=== PATIENT | female | born 1960 | race Caucasian/White ===

== ENCOUNTER 2016-10-31 17:05 | Emergency (ER) | payer BC, OTHER ==
[~2016-10-31] VITALS: Ht 160 cm; Wt 78.8 kg
[2016-10-31 17:08] VITALS: Ht 160 cm; Wt 78.8 kg
[2016-10-31] MEDS ORDERED: ONDANSETRON 4 MG INJ IV STA ×2 (17:19→18:57)
[2016-10-31] MEDS ORDERED: KETOROLAC 30 MG INJ IV STA (17:19)
[2016-10-31] MEDS ORDERED: FAMOTIDINE 20 MG INJ IV STA (17:19)
[2016-10-31] MEDS ORDERED: SOD CHLORIDE 0.9% 1,000 ML IV STA (17:19)
[2016-10-31 17:35] LABS: ADD SCAN DIFF NO; BASOPHILS % 0.2 % (0.0-2.0); EOSINOPHILS % 0.1 % (0.0-7.0); HEMATOCRIT 41.3 % (37.0-47.0); HEMOGLOBIN 13.5 g/dl (12.0-16.0); LYMPHOCYTES # 1.7 10^3/ul (0.8-2.9); LYMPHOCYTES % 12.4 % (15.0-51.0); MEAN CORPUSCULAR HEMOGLOBIN 30.3 pg (29.0-33.0); MEAN CORPUSCULAR HGB CONC 32.7 g/dl (32.0-37.0); MEAN CORPUSCULAR VOLUME 92.6 fl (82.0-101.0); MEAN PLATELET VOLUME 8.7 fl (7.4-10.4); MONOCYTE # 0.4 10^3/ul (0.3-0.9); MONOCYTES % 2.7 % (0.0-11.0); NEUTROPHIL # 11.4 10^3/ul (1.6-7.5); NEUTROPHILS % 84.2 % (39.0-77.0); PLATELET COUNT 380 10^3/UL (140-415); RED BLOOD COUNT 4.46 10^6/ul (4.20-5.40); RED CELL DISTRIBUTION WIDTH 12.8 % (11.5-14.5); WHITE BLOOD COUNT 13.6 10^3/ul (4.8-10.8)
[2016-10-31] MEDS ORDERED: morphine 4 MG/ML VIAL IV STA (17:39)
[2016-10-31 17:41] LABS: ADD UMIC YES; URINE BILIRUBIN (Dip) NEGATIVE (NEGATIVE); URINE BLOOD (Dip) 3+ (NEGATIVE); URINE GLUCOSE (Dip) NEGATIVE (NEGATIVE); URINE KETONES (Dip) NEGATIVE (NEGATIVE); URINE LEUKOCYTE ESTERASE (Dip) NEGATIVE (NEGATIVE); URINE NITRITE (Dip) NEGATIVE (NEGATIVE); URINE TOTAL PROTEIN (Dip) TRACE (NEGATIVE); URINE UROBILINOGEN (Dip) 0.2 E.U./dL (0.1-1.0)
[2016-10-31 17:46] LABS: ALBUMIN 4.9 g/dl (3.3-4.9)
[2016-10-31 17:47] LABS: POTASSIUM 3.5 mmol/L (3.5-5.1)
[2016-10-31 17:49] LABS: ALBUMIN/GLOBULIN RATIO 1.4; BILIRUBIN,INDIRECT 0.3 mg/dl (0-1.1); BILIRUBIN,TOTAL 0.3 mg/dl (0.2-1.3); CREATININE 0.66 mg/dl (0.44-1.00); TOTAL PROTEIN 8.4 g/dl (6.1-8.1)
[2016-10-31 17:50] LABS: CALCIUM 9.3 mg/dl (8.4-10.2)
[2016-10-31 17:55] LABS: URINE COLOR DARK YELLOW (YELLOW)
[2016-10-31 17:56] LABS: BACTERIA,URINE MODERATE; SQUAMOUS EPITHELIAL CELL,UR FEW; URINE RBCS >200 /HPF (0)
--- NOTE | 2016-10-31 18:32 | RADRPT ---
PROCEDURE: CT Abdomen and Pelvis without contrast. CLINICAL INDICATION: Left lower quadrant abdominal pain extending to the back TECHNIQUE: CT scan of the abdomen and pelvis without contrast was performed without intravenous co ntrast. Coronal and sagittal reformatted images were obtained from the axial source images. Images were reviewed on a high-resolution PACS workstation. CTDI 1056 mGy, DLP 20 mGy-cm One or more of the following dose reduction techniques were used: Automated exposure control Adjustment of the mA and/or kV according to patient size. Use of iterative reconstruction technique. COMPARISON: None. FINDINGS: There is minimal left basilar atelectasis. The heart size is normal. The aorta and its branches are normal in size and caliber. There is an obstructive 3 mm calculus within the left proximal ureter with moderate dilatation of th e upstream left ureter and moderate left hydronephrosis. There is also perinephric fat stranding taylor rrounding the left kidney and proximal left ureter. The mid to distal left ureter is normal in eliza samuel. No calculi are visualized within the left kidney. There is no right nephroureterolithiasis. There is no right hydronephrosis. There is a 3.2 cm hypodense lesion within the inferior pole of th e right kidney of low attenuation in keeping with a cyst. The right ureter is normal in course and caliber. Evaluation of solid organs is limited due to the lack of intravenous contrast. However, the liver, g allbladder, spleen, and pancreas are unremarkable. There is mild thickening of the bilateral adrena l glands. Evaluation of the gastrointestinal tract is limited due to the lack of oral contrast. The esophagus and stomach are unremarkable. The small bowel loops are normal in caliber without evidence of smal l bowel obstruction. There are multiple diverticula within the colon, more prominent within the tra nsverse and descending colon without evidence for diverticulitis. The appendix is visualized, and i s normal. There is no free intraperitoneal fluid or pneumoperitoneum. There is no mesenteric, retroperitoneal, or pelvic lymphadenopathy. The bladder is mildly distended, but grossly unremarkable. The uterus and adnexa are unremarkable. There is no pelvic free fluid. There is moderate to severe degenerative disk disease at L5-S1. No acute fractures are visualized. There are no bony destructive changes. RPTAT: ZZ IMPRESSION: 1. Obstructive 3 mm calculus within the left proximal ureter with moderate dilatation of the upstre am proximal left ureter and moderate left hydronephrosis. Mild surrounding perinephric fat stranding . 2. Scattered diverticulosis without evidence for diverticulitis. 3. Right renal cyst measuring about 3.2 cm. .Margarita De La Fuente MD, Date Time Electronically viewed and signed by .Margarita De La Fuente MD, on 10/31/2016 18:32 .T/
[2016-10-31] MEDS ORDERED: ASPI325T32 PO (18:37)
--- NOTE | 2016-10-31 18:40 | ERD ---
ER Documentation Chief Complaint Date/Time DATE: 10/31/16 TIME: 18:38 Chief Complaint left flank pain, onset 1530 HPI This is a 66-year-old female who presents to the emergency room for evaluation of left-sided flank pain. The patient states that she was at the grocery store shopping and felt a sharp pain on her left side. She stated occurred 2 hours prior to arrival in the emergency room. She states it radiates to her left groin. She denies any aggravating or relieving factors for her pain. She does say she has mild nausea associated with this and has vomited once. The patient came to the ER for further evaluation. ROS All systems reviewed and are negative except as per history of present illness. Medications Home Meds Reported Medications Aspirin* (Aspirin* EC) 325 Mg Tab, 325 MG PO DAILY, TAB 10/31/16 Allergies Allergies: Coded Allergies: No Known Allergy (Unverified , 10/31/16) PMhx/Soc Medical and Surgical Hx: pt denies Medical Hx, pt denies Surgical Hx Hx Alcohol Use: No Hx Substance Use: No Hx Tobacco Use: No Smoking Status: Never smoker Physical Exam Vitals Vital Signs Date Time Temp Pulse Resp B/P Pulse Ox O2 Delivery O2 Flow Rate FiO2 10/31/16 17:08 97.5 64 20 180/81 99 Physical Exam INITIAL VITAL SIGNS: Reviewed by me GENERAL: The patient is well developed and appropriate for usual state of health in no apparent distress HEENT: Pupils equal, round, and reactive to light. EOMI. There is no scleral icterus. NECK: C-spine is soft and supple, there is no meningismus. There is no cervical lymphadenopathy. LUNGS: Clear to auscultation bilaterally. There are no rales, wheezes or rhonchi. HEART: Regular rate and rhythm, no murmurs, clicks, rubs or gallops. ABDOMEN: Left-sided CVAT, otherwise soft, non-tender, non-distended. There are bowel sounds in all four quadrants. No rebound or guarding. EXTREMITIES: There is no peripheral cyanosis or edema. No focal swelling or erythema. NEUROLOGICAL: The patient moves all four extremities with 5/5 strength. Cranial nerves II - XII are intact. Normal gait. Alert and oriented SKIN: There is no apparent rash or petechiae. HEME/LYMPHATIC: There is no evidence of excessive bruising or lymphedema. PSYCHIATRIC: The patient does not appear anxious or depressed. Result Diagram: 10/31/16 1720 10/31/16 1720 Results 24 hrs Laboratory Tests Test 10/31/16 17:20 White Blood Count 13.610^3/ul Red Blood Count 4.4610^6/ul Hemoglobin 13.5g/dl Hematocrit 41.3% Mean Corpuscular Volume 92.6fl Mean Corpuscular Hemoglobin 30.3pg Mean Corpuscular Hemoglobin Concent 32.7g/dl Red Cell Distribution Width 12.8% Platelet Count 29282^3/UL Mean Platelet Volume 8.7fl Neutrophils % 84.2% Lymphocytes % 12.4% Monocytes % 2.7% Eosinophils % 0.1% Basophils % 0.2% Nucleated Red Blood Cells % 0.0/100WBC Neutrophils # 11.410^3/ul Lymphocytes # 1.710^3/ul Monocytes # 0.410^3/ul Eosinophils # 0.010^3/ul Basophils # 0.010^3/ul Nucleated Red Blood Cells # 0.010^3/ul Urine Color DARK YELLOW Urine Clarity HAZY Urine pH 6.0 Urine Specific [place] 1.025 Urine Ketones NEGATIVE Urine Nitrite NEGATIVE Urine Bilirubin NEGATIVE Urine Urobilinogen 0.2 E.U./dL Urine Leukocyte Esterase NEGATIVE Urine Microscopic RBC >200/HPF Urine Microscopic WBC 2-5/HPF Urine Squamous Epithelial Cells FEW Urine Bacteria MODERATE Urine Hemoglobin 3+ Urine Glucose NEGATIVE% Urine Total Protein TRACE Sodium Level 140mmol/L Potassium Level 3.5mmol/L Chloride Level 103mmol/L Carbon Dioxide Level 26mmol/L Anion Gap 15 Blood Urea Nitrogen 15mg/dl Creatinine 0.66mg/dl Glucose Level 175mg/dl Calcium Level 9.3mg/dl Total Bilirubin 0.3mg/dl Direct Bilirubin 0.00mg/dl Indirect Bilirubin 0.3mg/dl Aspartate Amino Transf (AST/SGOT) 36IU/L Alanine Aminotransferase (ALT/SGPT) 76IU/L Alkaline Phosphatase 114IU/L Total Protein 8.4g/dl Albumin 4.9g/dl Globulin 3.50g/dl Albumin/Globulin Ratio 1.40 Lipase 49U/L Current Medications Medications (Trade) Dose Ordered Sig/Heather Route PRN Reason Start Time Stop Time Status Last Admin Dose Admin Sodium Chloride (NS) 1,000 ml @ 1,000 mls/hr Q1H STAT IV 10/31/16 17:19 10/31/16 18:18 DC 10/31/16 17:27 Ondansetron HCl (Zofran Inj) 4 mg ONCE STAT IV 10/31/16 17:19 10/31/16 17:20 DC 10/31/16 17:26 Famotidine (Pepcid Iv) 20 mg ONCE STAT IV 10/31/16 17:19 10/31/16 17:20 DC 10/31/16 17:26 Ketorolac Tromethamine (Toradol) 30 mg ONCE STAT IV 10/31/16 17:19 10/31/16 17:20 DC 10/31/16 17:27 Morphine Sulfate (morphine) 4 mg ONCE STAT IV 10/31/16 17:39 10/31/16 17:40 DC 10/31/16 17:42 Tamsulosin HCl (Flomax) 0.4 mg ONCE ONCE PO 10/31/16 19:00 10/31/16 19:01 Procedures/MDM CT abdomen pelvis without: 1. Obstructive 3 mm calculus within the left proximal ureter with moderate dilatation of the upstream proximal left ureter and moderate left hydronephrosis. Mild surrounding perinephric fat stranding. 2. Scattered diverticulosis without evidence for diverticulitis. 3. Right renal cyst measuring about 3.2 cm. This 56-year-old female presents to the emergency room for evaluation of left- sided flank pain. When I evaluated her she did have left-sided CVAT. Lab work , urinalysis, and CT was obtained. CT did confirm my suspicion of a kidney stone in the proximal ureter. This patient does not have any sign of fever, no white blood cells in the urine., No elevation in creatinine. The patient is urinating without difficulty. Her pain is controlled with morphine. Nausea control with Zofran in the emergency room. The patient was given Flomax in the ER and will be discharged home with a prescription for Flomax, [place], and Zofran. She will be given urology referral and the patient is okay with that plan of care. I advised to return immediately to the ER if she were to develop a fever or difficulty urinating and she verbalized understanding. Departure Diagnosis: Primary Impression: Ureterolithiasis Additional Impressions: Flank pain Nausea & vomiting Condition: Stable TATIANA ALANIS DO Oct 31, 2016 18:40
[2016-10-31] MEDS ORDERED: TAMS-14 PO (18:42)
[2016-10-31] MEDS ORDERED: HYDR-906 PO (18:42)
[2016-10-31] MEDS ORDERED: ONDA-43 PO (18:42)
[2016-10-31] MEDS ORDERED: TAMSULOSIN (SR) 0.4 MG CAP PO ONE (19:00)
[2016-10-31 19:16] VITALS: BP 137/77; PULSE 83; RESP 16; TEMP 98.6
== END 2016-10-31 19:17 | disposition home or self-care (01) ==
LOC: E/R 17:05
DX: N20.1 Calculus of ureter (principal); R11.2 Nausea with vomiting, unspecified
CPT/HCPCS: 36415; 74176; 80053; 81001; 83690; 85025; 96374; 96375; 96376; 99285; J1885; J2270; J2405; J7030; 81003